=== PATIENT | male | born 1980 ===

== ENCOUNTER → 2017-02-27 | Outpatient (REF) | payer OTHER ==
[2017-02-27 15:04] LABS: SPERM ABNORMAL FORMS WBC'S NOTED
[2017-02-27 15:05] LABS: % NORMAL FORMS 12 % (>=4); IMMOTILITY 26 %; NON PROGRESSIVE MOTILITY (c) 16 %; PROGRESSIVE MOTILITY (a) 58 % (>=32); SPERM# 39.1 M/Ejac (33-46); TOTAL FUNCTIONAL 6.1 M/Ejac.; TOTAL MOTILITY 74 % (>=40); TOTAL PROGRESSIVE SPERM 22.5 M/Ejac.
== END ==
LOC: M LAB REF 14:58
PROVIDERS: ATTEND Obstetrics & Gynecology
DX: N46.8 Other male infertility (principal)